=== PATIENT | male | born 1955 | race African-American/Black ===

== ENCOUNTER 2024-04-05 03:23 | Emergency (ER) | payer BC, OTHER ==
[~2024-04-05] VITALS: Ht 190.5 cm; Wt 113.0 kg
[2024-04-05 04:14] VITALS: TEMP 98
[2024-04-05 04:22] VITALS: PULSE 73; RESP 11; O2SAT 95
[2024-04-05] MEDS: KETOROLAC TROMETH 60MG/2ML VIAL IM ONE (04:33)
[2024-04-05] MEDS ORDERED: LEVO500T91 PO (05:28)
[2024-04-05 07:40] VITALS: O2SAT 96
[2024-04-05 11:00] VITALS: BP 151/89; PULSE 67; RESP 15; O2SAT 99
== END 2024-04-05 18:34 | disposition home or self-care (01) ==
LOC: ER 03:23 → EDBD 03:23 → ER 18:34
DX: N39.0 Urinary tract infection, site not specified (principal)
CPT/HCPCS: 74176; 96372; 99285; J1885